=== PATIENT | female | born 1935 | race Hispanic/Latino ===

== ENCOUNTER 2016-10-25 04:48 | Inpatient (IN) | payer MEDICARE ==
[2016-10-25] MEDS ORDERED: ATROVENT IH ONE ×3 (05:06→05:19)
[2016-10-25] MEDS ORDERED: PROVENTIL IH ONE ×2 (05:06→05:18)
[2016-10-25 05:25] LABS: Basophils % (Auto) 0.2 % (0.0-1.8); Eosinophils % (Auto) 0.1 % (0.0-4.3); Hematocrit 34.7 % (30.3-42.9); Hemoglobin 11.3 gm/dl (10.1-14.3); Mean Corpuscular HGB Conc 33 % (30-34); Mean Corpuscular Hemoglobin 28 pg (28-32); Mean Corpuscular Volume 85 fl (79-97); Platelet Count 232 K/mm3 (140-440); Red Cell Distribution Width 15.1 % (13.2-15.2); White Blood Count 6.1 K/mm3 (4.5-11.0)
[2016-10-25 05:42] LABS: BUN/Creatinine Ratio 14.44; Calcium 8.5 mg/dL (8.4-10.2); Chloride 102.9 mmol/L (98-107); Potassium 3.1 mmol/L (3.6-5.0)
[2016-10-25 07:23] LABS: Creatine Kinase MB 7.6 ng/mL (0.0-4.0)
[2016-10-25 07:25] LABS: Alanine Aminotransferase 17 units/L (7-56); Albumin 4.1 g/dL (3.9-5); Albumin/Globulin Ratio 1.7 %; Alkaline Phosphatase 80 units/L (35-129); Bilirubin,Total 0.2 mg/dL (0.1-1.2); Creatine Kinase 421 units/L (30-135); INR 0.96 (0.87-1.13); Partial Thromboplastin Time 29.2 Sec. (24.2-36.6); Total Protein 6.5 g/dL (6.3-8.2)
[2016-10-25] MEDS ORDERED: K-DUR PO ONE (07:25)
[2016-10-25 07:33] LABS: Bilirubin,Direct < 0.2 mg/dL (0-0.2)
--- NOTE | 2016-10-25 07:45 | Emergency Department Report ---
ED General Adult HPI - General Chief complaint: Dyspnea/Respdistress Stated complaint: YVONNE/ASTHMA Time Seen by Provider: 10/25/16 06:18 Source: patient, family, EMS Mode of arrival: Stretcher Limitations: No Limitations - History of Present Illness Initial comments: The patient was transported to this facility by EMS for a "asthma flare". She states that she took a breathing treatment at home but she did not have relief. Her is being buried today and she is under stress. EMS gave Solu- Medrol as well as Atrovent and albuterol. The patient arrived in no distress and was noted at triage to have normal work of breathing. She states that she usually runs a pulse oximetry in the low 90s at home. She is not on supplemental oxygen however. She is patient of Dr. Jorge varela. She states that she has adult onset asthma after 59 years of age. He stated that she was a former smoker but Dr. Bellamy according to the patient told her that was "not contributory". -: hour(s) Severity scale (0 -10): 0 Consistency: now resolved Improves with: none Worsens with: none Associated Symptoms: denies other symptoms - Related Data Home Medications Medication Instructions Recorded Confirmed Last Taken ALPRAZolam [Xanax TAB] 0.5 mg PO DAILY PRN 10/25/16 10/25/16 10/24/16 Lisinopril [Zestril] 20 mg PO QDAY 10/25/16 10/25/16 10/24/16 amLODIPine [Norvasc] 10 mg PO DAILY 10/25/16 10/25/16 10/24/16 Allergies Allergy/AdvReac Type Severity Reaction Status Date / Time medroxyprogesterone acetate Allergy "Drives me Verified 10/25/16 10:46 [From Provera] crazy" buspirone HCl [From BuSpar] AdvReac Severe ALMOST HAD Verified 10/25/16 10:46 STROKE codeine AdvReac Severe DRIVES Verified 10/25/16 10:46 CRAZY,DISORIENTED cyclobenzaprine HCl AdvReac Severe DISORIENTED Verified 10/25/16 10:46 [From Flexeril] Sulfa (Sulfonamide AdvReac Severe VOMITING,HI Verified 10/25/16 10:46 Antibiotics) VES,DIARRHE A ED Review of Systems ROS: Stated complaint: YVONNE/ASTHMA Other details as noted in HPI Constitutional: denies: chills, fever Eyes: denies: eye pain, eye discharge, vision change ENT: denies: ear pain, throat pain Respiratory: see HPI, shortness of breath, wheezing Cardiovascular: denies: chest pain, palpitations Endocrine: no symptoms reported Gastrointestinal: denies: abdominal pain, nausea, diarrhea Genitourinary: denies: urgency, dysuria, discharge Musculoskeletal: denies: back pain, joint swelling, arthralgia Skin: denies: rash, lesions Neurological: denies: headache, weakness, paresthesias Psychiatric: denies: anxiety, depression Hematological/Lymphatic: denies: easy bleeding, easy bruising ED Past Medical Hx - Past Medical History Hx Hypertension: Yes Hx Arthritis: Yes (RA) Hx Asthma: Yes - Surgical History Hx Cholecystectomy: Yes Additional Surgical History: nasal. foot. bladder - Social History Smoking Status: Never Smoker Substance Use Type: None - Medications Home Medications: Home Medications Medication Instructions Recorded Confirmed Last Taken Type ALPRAZolam [Xanax TAB] 0.5 mg PO DAILY PRN 10/25/16 10/25/16 10/24/16 History Lisinopril [Zestril] 20 mg PO QDAY 10/25/16 10/25/16 10/24/16 History amLODIPine [Norvasc] 10 mg PO DAILY 10/25/16 10/25/16 10/24/16 History ED Physical Exam - General Limitations: No Limitations General appearance: alert, in no apparent distress - Head Head exam: Present: atraumatic, normocephalic - Eye Eye exam: Present: normal appearance. Absent: scleral icterus - ENT ENT exam: Present: mucous membranes moist - Neck Neck exam: Present: normal inspection - Respiratory Respiratory exam: Present: normal lung sounds bilaterally. Absent: respiratory distress - Cardiovascular Cardiovascular Exam: Present: regular rate, normal rhythm. Absent: systolic murmur, diastolic murmur, rubs, gallop - GI/Abdominal GI/Abdominal exam: Present: soft, normal bowel sounds. Absent: distended, tenderness, guarding, rebound - Extremities Exam Extremities exam: Present: normal inspection, normal capillary refill. Absent: tenderness, pedal edema, joint swelling, calf tenderness - Back Exam Back exam: Present: normal inspection - Neurological Exam Neurological exam: Present: alert, oriented X3, CN II-XII intact. Absent: motor sensory deficit - Psychiatric Psychiatric exam: Present: normal affect, normal mood - Skin Skin exam: Present: warm, dry, intact, normal color. Absent: rash ED Course Vital Signs 10/25/16 10/25/16 10/25/16 05:16 05:20 05:21 Temperature Pulse Rate 91 H Pulse Rate [ 95 H Bilateral] Respiratory 19 Rate Respiratory 13 Rate [Bilateral ] Blood Pressure 156/67 Blood Pressure [Left] O2 Sat by Pulse 92 100 Oximetry 10/25/16 10/25/16 10/25/16 05:29 05:30 05:33 Temperature 97.9 F Pulse Rate 92 H 93 H 92 H Pulse Rate [ Bilateral] Respiratory 20 18 Rate Respiratory Rate [Bilateral ] Blood Pressure 156/67 Blood Pressure 159/67 [Left] O2 Sat by Pulse 100 100 Oximetry 10/25/16 10/25/16 10/25/16 05:40 05:50 06:00 Temperature Pulse Rate 93 H 98 H 103 H Pulse Rate [ Bilateral] Respiratory 13 12 20 Rate Respiratory Rate [Bilateral ] Blood Pressure 164/63 154/57 154/57 Blood Pressure [Left] O2 Sat by Pulse 100 100 93 Oximetry 10/25/16 10/25/16 10/25/16 06:10 06:20 06:30 Temperature Pulse Rate 98 H 97 H 100 H Pulse Rate [ Bilateral] Respiratory 16 18 17 Rate Respiratory Rate [Bilateral ] Blood Pressure 148/63 162/60 162/60 Blood Pressure [Left] O2 Sat by Pulse 93 93 90 Oximetry 10/25/16 10/25/16 10/25/16 06:40 07:04 07:06 Temperature Pulse Rate 96 H 100 H Pulse Rate [ Bilateral] Respiratory 17 18 18 Rate Respiratory Rate [Bilateral ] Blood Pressure 165/64 Blood Pressure 174/65 [Left] O2 Sat by Pulse 92 93 98 Oximetry 10/25/16 07:40 Temperature Pulse Rate Pulse Rate [ Bilateral] Respiratory Rate Respiratory Rate [Bilateral ] Blood Pressure Blood Pressure [Left] O2 Sat by Pulse 95 Oximetry ED Medical Decision Making - Lab Data Result diagrams: 10/25/16 05:14 10/25/16 05:14 Laboratory Results - last 24 hr 10/25/16 10/25/16 10/25/16 05:14 05:14 06:41 WBC 6.1 RBC 4.10 Hgb 11.3 Hct 34.7 MCV 85 MCH 28 MCHC 33 RDW 15.1 Plt Count 232 Lymph % (Auto) 18.2 Knott % (Auto) 13.4 H Eos % (Auto) 0.1 Baso % (Auto) 0.2 Lymph # 1.1 L Knott # 0.8 Eos # 0.0 Baso # 0.0 Seg Neutrophils % 68.1 Seg Neutrophils # 4.1 Sodium 142 Potassium 3.1 L Chloride 102.9 Carbon Dioxide 25 Anion Gap 17 BUN 13 Creatinine 0.9 Estimated GFR 60 BUN/Creatinine Ratio 14.44 Glucose 95 Calcium 8.5 CK-MB (CK-2) 7.6 H NT-Pro-B Natriuret Pep 1206 H - EKG Data -: EKG Interpreted by Me EKG shows normal: sinus rhythm Rate: normal - EKG Data Interpretation: nonspecific ST-T wave micki - Radiology Data interpreted by me: Chest x-ray no acute process. Chronic scarring right lung. The patient has been stable here. We walked the patient and her pulse oximetry went down to 88%. No history of heart failure. She is an elevated BNP. Therefore she was referred to the hospitalist service further care and evaluation. I think an echocardiogram would be of value. I did give her a diuretic as her potassium was low. Dr. Cruz is aware. Critical care attestation.: If time is entered above; I have spent that time in minutes in the direct care of this critically ill patient, excluding procedure time. ED Disposition Clinical Impression: COPD exacerbation, Elevated brain natriuretic peptide (BNP) level, Hypoxia Disposition: OP ADMITTED IP TO THIS HOSP Is pt being admited?: Yes Does the pt Need Aspirin: Yes Condition: Stable Instructions: Chronic Obstructive Pulmonary Disease (ED) Referrals: PRIMARY CARE, [Primary Care Provider] - 3-5 Days Time of Disposition: 11:58
--- NOTE | 2016-10-25 08:59 | XRay Report ---
PORTABLE CHEST INDICATION: Difficulty breathing. COMPARISON: None similar at this institution. FINDINGS: Portable, frontal chest radiograph demonstrates normal cardiomediastinal silhouette. Mild patient rotation. Well-expanded lungs. Mild bibasilar atelectasis or scarring. Mild, left more than right basilar haziness may represent pleural fluid and/or thickening. No CHF. EKG leads. Intact bones. CONCLUSION: Bibasilar radiographic appearance in this patient with possible COPD, as described. Please also correlate clinically and with prior chest imaging, if available. Thank you for the opportunity to participate in this patient's care.
--- NOTE | 2016-10-25 09:19 | Admit Criteria Form ---
Admission Criteria Documentation: COPD Clinical Indications for Admission to Inpatient Care (Place 'X' for any and all applicable criteria): Admission is indicated for ANY ONE of the following (1)(2)(3): [ ]I. Acute exacerbation by high-risk comorbidity (e.g., pneumonia, dysrhythmia, heart failure, pleural effusion, pneumothorax) or severe underlying COPD (e.g., steroid dependent) [X ]II. Inpatient admission required rather than observation care (see Chronic Obstructive Pulmonary Disease: Observation Care) because of ANY ONE of the following: [X ]a) New or pre-existing signs or symptoms of COPD (eg, dyspnea or Tachypnea at rest or with minimal activity) that persist despite outpatient and observation care treatment [ ]b) New-onset hypoxemia (room air SaO2 less than 90%, PO2 less than 60 mm Hg (8.0 kPa)) that persists despite outpatient and observation care treatment [ ]c) Worsening of pre-existing hypoxemia (eg, new or increased requirement for supplemental oxygen to maintain oxygenation at baseline level) that persists despite outpatient and observation care treatment, with oxygen treatment needs performable only in acute inpatient setting [ ]d) Hypercarbia (PCO2 greater than 40 mm Hg (5.3 kPa))-induced respiratory acidosis (pH less than 7.35) that persists despite outpatient and observation care treatment [ ]e) Supplemental oxygen or respiratory treatments for over 24 hours that are performable only in acute inpatient setting [ ]f) Chest tube placement with active evacuation (e.g., suction, drainage) (5) [ ]g) Other condition, treatment or monitoring requiring inpatient admission [ ]III. Planned invasive surgical or diagnostic procedures requiring acute- care hospitalization [ ]IV. Acute respiratory failure (e.g., uncompensated hypercarbia, severe hypoxemia) [ ]V. Severe comorbid condition (e.g., severe steroid myopathy, acute vertebral fracture) that has acutely worsened pulmonary function [ ]. Confusion state, lethargy, obtundation, stupor or coma Extended stay beyond goal length of stay may be needed for (31)(32): [ ]a ) Respiratory Failure. [ ]b) Severe or persisting hypoxemia or hypercarbia [ ]c) Severe or persistent dyspnea [ ]d) Comorbidities (e.g. chronic heart failure, atrial fibrillation with rapid response, pneumonia) [ ]e) Malnutrition The original [facility] content created by [facility] has been revised. The portions of the content which have been revised are identified through the use of italic text or in bold, and [facility] has neither reviewed nor approved the modified material. All other unmodified content is copyright [facility]. Please see references footnoted in the original [facility] edition 2016 Admission Criteria Met: Yes
[2016-10-25] MEDS ORDERED: XANAX PO PRN (10:04)
--- NOTE | 2016-10-25 10:04 | History and Physical Report ---
History of Present Illness Date of examination: 10/25/16 History of present illness: The patient was transported to this facility by EMS for a "asthma flare". She states that she took a breathing treatment at home but she did not have relief. Her is being buried today and she is under stress. EMS gave Solu- Medrol as well as Atrovent and albuterol. The patient arrived in no distress and was noted at triage to have normal work of breathing. She states that she usually runs a pulse oximetry in the low 90s at home. She is not on supplemental oxygen however. She is patient of Dr. Jorge varela. She states that she has adult onset asthma after 59 years of age. He stated that she was a former smoker but Dr. Bellamy according to the patient told her that was "not contributory". Medications and Allergies Allergies Allergy/AdvReac Type Severity Reaction Status Date / Time medroxyprogesterone acetate Allergy "Drives me Verified 10/25/16 10:46 [From Provera] crazy" buspirone HCl [From BuSpar] AdvReac Severe ALMOST HAD Verified 10/25/16 10:46 STROKE codeine AdvReac Severe DRIVES Verified 10/25/16 10:46 CRAZY,DISORIENTED cyclobenzaprine HCl AdvReac Severe DISORIENTED Verified 10/25/16 10:46 [From Flexeril] Sulfa (Sulfonamide AdvReac Severe VOMITING,HI Verified 10/25/16 10:46 Antibiotics) VES,DIARRHE A aspirin AdvReac Unknown Verified 10/25/16 12:18 Home Medications Medication Instructions Recorded Confirmed Last Taken Type ALPRAZolam [Xanax TAB] 0.5 mg PO DAILY PRN 10/25/16 10/25/16 10/24/16 History Lisinopril [Zestril] 20 mg PO QDAY 10/25/16 10/25/16 10/24/16 History amLODIPine [Norvasc] 10 mg PO DAILY 10/25/16 10/25/16 10/24/16 History Review of Systems Respiratory: shortness of breath Exam - Constitutional Vitals: Temp Pulse Resp BP Pulse Ox 97.9 F 100 H 18 174/65 95 10/25/16 05:29 10/25/16 07:04 10/25/16 07:06 10/25/16 07:04 10/25/16 07:40 General appearance: Present: mild distress - EENT Eyes: Present: PERRL, EOM intact ENT: hearing intact, clear oral mucosa - Neck Neck: Present: supple, normal ROM - Respiratory Respiratory effort: normal Respiratory: bilateral: rhonchi - Cardiovascular Rhythm: regular Heart Sounds: Present: S1 & S2 - Extremities Extremities: no ischemia, No edema - Abdominal General gastrointestinal: Present: soft, non-tender, non-distended, normal bowel sounds - Musculoskeletal Musculoskeletal: strength equal bilaterally - Psychiatric Psychiatric: appropriate mood/affect, intact judgment & insight - Neurologic Neurologic: CNII-XII intact, moves all extremities Results - Labs CBC & Chem 7: 10/25/16 05:14 10/25/16 05:14 Labs: Laboratory Last Values WBC 6.1 K/mm3 (4.5-11.0) 10/25/16 05:14 RBC 4.10 M/mm3 (3.65-5.03) 10/25/16 05:14 Hgb 11.3 gm/dl (10.1-14.3) 10/25/16 05:14 Hct 34.7 % (30.3-42.9) 10/25/16 05:14 MCV 85 fl (79-97) 10/25/16 05:14 MCH 28 pg (28-32) 10/25/16 05:14 MCHC 33 % (30-34) 10/25/16 05:14 RDW 15.1 % (13.2-15.2) 10/25/16 05:14 Plt Count 232 K/mm3 (140-440) 10/25/16 05:14 Lymph % (Auto) 18.2 % (13.4-35.0) 10/25/16 05:14 Whitley % (Auto) 13.4 % (0.0-7.3) H 10/25/16 05:14 Eos % (Auto) 0.1 % (0.0-4.3) 10/25/16 05:14 Baso % (Auto) 0.2 % (0.0-1.8) 10/25/16 05:14 Lymph # 1.1 K/mm3 (1.2-5.4) L 10/25/16 05:14 Whitley # 0.8 K/mm3 (0.0-0.8) 10/25/16 05:14 Eos # 0.0 K/mm3 (0.0-0.4) 10/25/16 05:14 Baso # 0.0 K/mm3 (0.0-0.1) 10/25/16 05:14 Seg Neutrophils % 68.1 % (40.0-70.0) 10/25/16 05:14 Seg Neutrophils # 4.1 K/mm3 (1.8-7.7) 10/25/16 05:14 PT 12.7 Sec. (12.2-14.9) 10/25/16 06:41 INR 0.96 (0.87-1.13) 10/25/16 06:41 APTT 29.2 Sec. (24.2-36.6) 10/25/16 06:41 D-Dimer 252.38 ng/mlDDU (0-234) H 10/25/16 06:41 Sodium 142 mmol/L (137-145) 10/25/16 05:14 Potassium 3.1 mmol/L (3.6-5.0) L 10/25/16 05:14 Chloride 102.9 mmol/L (98-107) 10/25/16 05:14 Carbon Dioxide 25 mmol/L (22-30) 10/25/16 05:14 Anion Gap 17 mmol/L 10/25/16 05:14 BUN 13 mg/dL (7-17) 10/25/16 05:14 Creatinine 0.9 mg/dL (0.7-1.2) 10/25/16 05:14 Estimated GFR 60 ml/min 10/25/16 05:14 BUN/Creatinine Ratio 14.44 % 10/25/16 05:14 Glucose 95 mg/dL (65-100) 10/25/16 05:14 Lactic Acid 1.5 mmol/L (0.7-2.0) 10/25/16 06:46 Calcium 8.5 mg/dL (8.4-10.2) 10/25/16 05:14 Total Bilirubin 0.2 mg/dL (0.1-1.2) 10/25/16 06:41 Direct Bilirubin < 0.2 mg/dL (0-0.2) 10/25/16 06:41 Indirect Bilirubin 0.0 mg/dL 10/25/16 06:41 AST 28 units/L (5-40) 10/25/16 06:41 ALT 17 units/L (7-56) 10/25/16 06:41 Alkaline Phosphatase 80 units/L (35-129) 10/25/16 06:41 Total Creatine Kinase 421 units/L (30-135) H 10/25/16 06:41 CK-MB (CK-2) 7.6 ng/mL (0.0-4.0) H 10/25/16 06:41 CK-MB (CK-2) Rel Index 1.8 (0-4) 10/25/16 06:41 NT-Pro-B Natriuret Pep 1206 pg/mL (0-900) H 10/25/16 06:41 Total Protein 6.5 g/dL (6.3-8.2) 10/25/16 06:41 Albumin 4.1 g/dL (3.9-5) 10/25/16 06:41 Albumin/Globulin Ratio 1.7 % 10/25/16 06:41 Assessment and Plan - Patient Problems (1) Hypokalemia Current Visit: Yes Status: Acute (2) COPD exacerbation Current Visit: Yes Status: Acute Plan to address problem: Will Admit to medical floor, Pulmonary consult, Nebulizer, Steroids, O2 (3) Elevated brain natriuretic peptide (BNP) level Current Visit: Yes Status: Acute Plan to address problem: 2D Echo to evaluate for heart function
[2016-10-25] MEDS ORDERED: ZOFRAN IV PRN (10:05)
[2016-10-25] MEDS ORDERED: MILK OF MAGNESIA PO PRN (10:05)
[2016-10-25] MEDS ORDERED: DULCOLAX PR PRN (10:05)
[2016-10-25] MEDS ORDERED: TYLENOL PO PRN (10:05)
[2016-10-25] MEDS ORDERED: NACL ONE ×3 (10:08→10:58)
[2016-10-25] MEDS ORDERED: BABY ASPIRIN PO SCH (12:00)
[2016-10-25] MEDS ORDERED: NORVASC ONE (12:05)
[2016-10-25] MEDS ORDERED: ZESTRIL ONE (12:05)
[2016-10-25] MEDS ORDERED: BABY ASPIRIN ONE (12:05)
[2016-10-25] MEDS: NORVASC PO SCH (12:16)
[2016-10-25] MEDS: ZESTRIL PO SCH (12:16)
--- NOTE | 2016-10-25 12:33 | Cat Scan Report ---
CTA CHEST INDICATION: Elevated d-dimer. COMPARISON: None similar. FINDINGS: Chest CTA performed following intravenous administration of 100 cc of Omnipaque 350. Rotational MIP's also obtained. Small pericardial effusion/thickening with maximum AP measurement of approximately 8 mm anteriorly noted and also posterior to the left ventricle as on axial image 186, series 2, amongst others. Normal heart size. No aortic aneurysm or dissection. Mild aortic arch atherosclerotic calcifications. No suspicious pulmonary arterial filling defects. Patent central airway. Few small mediastinal lymph nodes noted, some sub-centimeter while the largest right distal paratracheal lymph node is approximately 1.3 x 1 cm, axial image 110, series 2. Increased hilar lymphoid soft tissue as well, approximately 1.2x 0.7 cm on the right, axial image 154 and 1.2 x 0.9 cm on the left, axial image 139. No significant axillary lymphadenopathy. Normal imaged thyroid. Left more than right apical scarring/pleural thickening as also basilar atelectasis or scarring. Mild bronchial wall thickening in the left lower lobe medially also noted, axial images 183-210, series 2, amongst others. Tiny right pleural fluid and atelectasis as well, axial image 234. Approximately 2 mm right lower lobe calcified granuloma also incidentally seen, axial image 196. Nonspecific distal esophageal wall thickening, not excluded for gastroesophageal reflux and/or hiatal hernia, amongst others. At least 3 or 4 ill-defined hepatic hypervascular foci, one measuring 0.9 cm in the right hepatic lobe inferiorly on axial image 262, series 2 and possibly 2 more medially as on axial images 249 and 260, amongst others. Largest such focus also noted at the junction of the right and left lobes measuring 1.5 cm , axial image 229, series 2. An indeterminate 9 mm right hepatic hypodensity as well, axial image 242 with another tiny possibly towards the left hepatic dome, axial image 212. Approximately 1 cm left adrenal apical hypodense lesion measuring 29 HU on axial image 252, series 2. Slight left perinephric stranding and cholecystectomy clips incompletely imaged. Demineralized bones mild to moderate multilevel thoracic spondylosis. CONCLUSION: 1. No CT evidence of pulmonary embolism with various other findings, including shotty nonspecific lymphadenopathy and minimal pericardial and right pleural fluid, as described. 2. Mild left lower lobe bronchial wall thickening medially also noted. 3. Various other incidental findings, including few chronic changes in the lungs, gastroesophageal prominence/thickening, nonspecific multiple liver lesions including some hypervascular foci, left adrenal mass and cholecystectomy clips, amongst others, as above. Thank you for the opportunity to participate in this patient's care.
[2016-10-25] MEDS: LOVENOX SUB-Q SCH (13:15)
--- NOTE | 2016-10-25 18:28 | Consultation ---
History of Present Illness Reason for consult: dyspnea, asthma, COPD History of present illness: Case of an 81 y/o female, who presented to the ED c/o SOB and asthma. She sees at the office. Was seen about 1 week ago with SOB , some cough and wheezing. Reports Hx/o adult onset asthma. reportedly, was given IM steroids,a Z pack and PO Prednisone. Unfortunately, her that day after a prolonged illness and she has not been feeling well since then. No chest pain or hemoptysis.No fever. Denies other Sx. Daughter at bedside. Past History Past Medical History: arthritis, other (asthma) Social history: . denies: smoking, alcohol abuse, prescription drug abuse Family history: hypertension Medications and Allergies Allergies Allergy/AdvReac Type Severity Reaction Status Date / Time medroxyprogesterone acetate Allergy "Drives me Verified 10/25/16 10:46 [From Provera] crazy" buspirone HCl [From BuSpar] AdvReac Severe ALMOST HAD Verified 10/25/16 10:46 STROKE codeine AdvReac Severe DRIVES Verified 10/25/16 10:46 CRAZY,DISORIENTED cyclobenzaprine HCl AdvReac Severe DISORIENTED Verified 10/25/16 10:46 [From Flexeril] Sulfa (Sulfonamide AdvReac Severe VOMITING,HI Verified 10/25/16 10:46 Antibiotics) VES,DIARRHE A aspirin AdvReac Unknown Verified 10/25/16 12:18 Home Medications Medication Instructions Recorded Confirmed Last Taken Type ALPRAZolam [Xanax TAB] 0.5 mg PO DAILY PRN 10/25/16 10/25/16 10/24/16 History Lisinopril [Zestril] 20 mg PO QDAY 10/25/16 10/25/16 10/24/16 History amLODIPine [Norvasc] 10 mg PO DAILY 10/25/16 10/25/16 10/24/16 History Active Meds: Active Medications Acetaminophen (Tylenol) 650 mg PO Q4H PRN PRN Reason: Pain MILD(1-3)/Fever >100.5/TIRADO Alprazolam (Xanax) 0.5 mg PO DAILY PRN PRN Reason: Anxiety Amlodipine Besylate (Norvasc) 10 mg PO DAILY [facility] Last Admin: 10/25/16 12:16 Dose: 10 mg Bisacodyl (Dulcolax) 10 mg MD QDAY PRN PRN Reason: Constipation unrelieved by MOM Enoxaparin Sodium (Lovenox) 30 mg SUB-Q QDAY [facility] Last Admin: 10/25/16 13:15 Dose: 30 mg Lisinopril (Zestril) 20 mg PO QDAY [facility] Last Admin: 10/25/16 12:16 Dose: 20 mg Magnesium Hydroxide (Milk Of Magnesia) 30 ml PO Q4H PRN PRN Reason: Constipation Ondansetron HCl (Zofran) 4 mg IV Q8H PRN PRN Reason: N/V unrelieved by Reglan Review of Systems All systems: negative Constitutional: fatigue, weakness, malaise, poor appetite Physical Examination Vital signs: Vital Signs Pulse Ox 92 10/25/16 05:16 General appearance: no acute distress, alert Eyes: non-icteric ENT: oropharynx moist Neck: supple Ascultation: Bilateral: diminished breath sounds, wheezes (sporadic , bilateral) Cardiovascular: regular rate and rhythm Gastrointestinal: normoactive bowel sounds, non-distended Integumentary: normal Extremities: no cyanosis, no edema, pink and warm normal mental status, non-focal exam, pupils equal and round, CN II-XII normal, motor strength normal and mood appropriate, affect normal Results - Laboratory Findings CBC and BMP: 10/25/16 05:14 10/25/16 05:14 PT/INR, D-dimer PT 12.7 Sec. (12.2-14.9) 10/25/16 06:41 INR 0.96 (0.87-1.13) 10/25/16 06:41 D-Dimer 252.38 ng/mlDDU (0-234) H 10/25/16 06:41 - Diagnostic Findings Chest x-ray: report reviewed, image reviewed CT scan - chest: pending Assessment and Plan Asthma/ COPD exacerbation Hypoxia High BNP.No obvious CHF clinically, but in this setting, needs to be monitored for Takosubo- Stress cardiomyopathy Rec Albuterol or Ipratropium nebs q 4-6 hr Solu medrol 40 -60 mg IV q 6 hr Check Chest CTA results when available Check echo results DVT prophylaxis oxygen NC titrate to O2 sat > 92% Thanks
[2016-10-25] MEDS ORDERED: PROVENTIL IH PRN (22:44)
[2016-10-26] MEDS ORDERED: ATROVENT IH SCH (02:00)
[2016-10-26 06:47] LABS: Basophils % (Auto) 0.1 % (0.0-1.8); Hematocrit 32.2 % (30.3-42.9); Hemoglobin 10.6 gm/dl (10.1-14.3); Mean Corpuscular HGB Conc 33 % (30-34); Mean Corpuscular Hemoglobin 28 pg (28-32); Mean Corpuscular Volume 85 fl (79-97); Platelet Count 223 K/mm3 (140-440); Red Blood Count 3.78 M/mm3 (3.65-5.03); Red Cell Distribution Width 15.1 % (13.2-15.2); White Blood Count 5.1 K/mm3 (4.5-11.0)
[2016-10-26 07:09] LABS: Albumin 3.4 g/dL (3.9-5); Albumin/Globulin Ratio 1.2 %; Bilirubin,Total 0.2 mg/dL (0.1-1.2); Calcium 8.3 mg/dL (8.4-10.2); Chloride 102.3 mmol/L (98-107); Potassium 4.3 mmol/L (3.6-5.0); Total Protein 6.2 g/dL (6.3-8.2)
[2016-10-26] MEDS: DUONEB 0.5 MG-3 MG/3 ML SOLN IH SCH ×2 (07:37→15:11)
[2016-10-26] MEDS: LOVENOX SUB-Q SCH (09:33)
[2016-10-26] MEDS: NORVASC PO SCH (09:33)
[2016-10-26] MEDS: ZESTRIL PO SCH (09:34)
--- NOTE | 2016-10-26 12:40 | Consultation ---
History of Present Illness Consult date: 10/26/16 Requesting physician: ASHOK JACOME Consult reason: congestive heart failure History of present illness: This is a 81-year-old female with history of COPD crushable chronic bronchitis who is breathing with the recent loss of her who is been having coughing and wheezing shortness of breath for the last 24-36 hours has been treated with anabiotic since daily test known history of COPD. Prior to this patient states during daily activities without any shortness of breath has rheumatoid arthritis. Patient has no chest pain no nausea no vomiting no fever or chills or syncope Past History Past Medical History: arthritis, COPD, hypertension, other (asthma) Social history: . denies: smoking, alcohol abuse, prescription drug abuse Family history: hypertension Medications and Allergies Allergies Allergy/AdvReac Type Severity Reaction Status Date / Time medroxyprogesterone acetate Allergy "Drives me Verified 10/25/16 10:46 [From Provera] crazy" buspirone HCl [From BuSpar] AdvReac Severe ALMOST HAD Verified 10/25/16 10:46 STROKE codeine AdvReac Severe DRIVES Verified 10/25/16 10:46 CRAZY,DISORIENTED cyclobenzaprine HCl AdvReac Severe DISORIENTED Verified 10/25/16 10:46 [From Flexeril] Sulfa (Sulfonamide AdvReac Severe VOMITING,HI Verified 10/25/16 10:46 Antibiotics) VES,DIARRHE A aspirin AdvReac Unknown Verified 10/25/16 12:18 Home Medications Medication Instructions Recorded Confirmed Last Taken Type ALPRAZolam [Xanax TAB] 0.5 mg PO DAILY PRN 10/25/16 10/25/16 10/24/16 History Lisinopril [Zestril] 20 mg PO QDAY 10/25/16 10/25/16 10/24/16 History amLODIPine [Norvasc] 10 mg PO DAILY 10/25/16 10/25/16 10/24/16 History Azithromycin [Zithromax] 250 mg PO 10/26/16 10/24/16 10:00 History Fluticasone/Salmeterol [Advair 1 puff IH BID 10/26/16 10/26/16 10/24/16 10:00 History Diskus 250-50 mcg] Fluticasone/Salmeterol [Advair 1 puff IH BID 10/26/16 10/26/16 10/25/16 10:00 History Diskus 250-50 mcg] Active Meds: Active Medications Acetaminophen (Tylenol) 650 mg PO Q4H PRN PRN Reason: Pain MILD(1-3)/Fever >100.5/TIRADO Albuterol (Proventil) 2.5 mg IH Q4HRT PRN PRN Reason: Shortness Of Breath Albuterol/Ipratropium (Duoneb 0.5 Mg-3 Mg/3 Ml Soln) 1 ampul IH Q6HRT [facility] Last Admin: 10/26/16 07:37 Dose: 1 ampul Alprazolam (Xanax) 0.5 mg PO DAILY PRN PRN Reason: Anxiety Last Admin: 10/25/16 21:28 Dose: 0.5 mg Amlodipine Besylate (Norvasc) 10 mg PO DAILY [facility] Last Admin: 10/26/16 09:33 Dose: 10 mg Bisacodyl (Dulcolax) 10 mg RI QDAY PRN PRN Reason: Constipation unrelieved by MOM Enoxaparin Sodium (Lovenox) 30 mg SUB-Q QDAY [facility] Last Admin: 10/26/16 09:33 Dose: 30 mg Lisinopril (Zestril) 20 mg PO QDAY [facility] Last Admin: 10/26/16 09:34 Dose: 20 mg Magnesium Hydroxide (Milk Of Magnesia) 30 ml PO Q4H PRN PRN Reason: Constipation Last Admin: 10/25/16 21:28 Dose: 30 ml Methylprednisolone Sodium Succinate (Solu-Medrol) 80 mg IV Q8HR [facility] Last Admin: 10/26/16 07:30 Dose: 80 mg Ondansetron HCl (Zofran) 4 mg IV Q8H PRN PRN Reason: N/V unrelieved by Reglan Review of Systems All systems: negative (HPI) Physical Examination Vital Signs Pulse Ox 92 10/25/16 05:16 General appearance: no acute distress, well-nourished HEENT: Positive: PERRL, Mucus Membranes Moist Neck: Positive: neck supple, trachea midline Cardiac: Positive: Reg Rate and Rhythm, S1/S2. Negative: Audible Murmur Lungs: Positive: Other (decreased breath sounds on left) Neuro: Positive: Grossly Intact Abdomen: Positive: Soft, Active Bowel Sounds. Negative: Tender, Distended Female genitourinary: deferred Skin: Positive: Clear Incision: Cardiac Cath Site Musculoskeletal: No Pain, Normal Range of Motion Extremities: Present: normal. Absent: edema Results 10/26/16 05:31 10/26/16 05:31 Cardiac Enzymes 10/26/16 Range/Units 05:31 AST 20 (5-40) units/L CBC 10/26/16 Range/Units 05:31 WBC 5.1 (4.5-11.0) K/mm3 RBC 3.78 (3.65-5.03) M/mm3 Hgb 10.6 (10.1-14.3) gm/dl Hct 32.2 (30.3-42.9) % Plt Count 223 (140-440) K/mm3 Lymph # 0.4 L (1.2-5.4) K/mm3 Wise # 0.2 (0.0-0.8) K/mm3 Eos # 0.0 (0.0-0.4) K/mm3 Baso # 0.0 (0.0-0.1) K/mm3 Comprehensive Metabolic Panel 10/26/16 Range/Units 05:31 Sodium 140 (137-145) mmol/L Potassium 4.3 D (3.6-5.0) mmol/L Chloride 102.3 (98-107) mmol/L Carbon Dioxide 26 (22-30) mmol/L BUN 15 (7-17) mg/dL Creatinine 1.0 (0.7-1.2) mg/dL Glucose 128 H (65-100) mg/dL Calcium 8.3 L (8.4-10.2) mg/dL AST 20 (5-40) units/L ALT 15 (7-56) units/L Alkaline Phosphatase 74 (35-129) units/L Total Protein 6.2 L (6.3-8.2) g/dL Albumin 3.4 L (3.9-5) g/dL - Imaging and Cardiology Echo: report reviewed (10/25/2016 normal lv function mild tr rvsp 56 mm hg and small pericardial effusion) EKG interpretations - Telemetry EKG Rhythm: Sinus Rhythm Assessment and Plan Acute respiratory failure COPD exacerbation Hypertension Rheumatoid arthritis Elevated BNP Pulmonary hypertension Recommend patient has moderate pulmonary hypertension as a cause of elevated BNP patient is poor pericardial effusion hemostatically significant continue treatment for patient COPD exaggeration and patient has normal RV and LV systolic function
--- NOTE | 2016-10-26 15:24 | Progress Note ---
Assessment and Plan Assessment and plan: The patient is a 81 year old female with hx of COPD, RA, Asthma was transported to this facility by EMS for a "asthma flare". She states that she took a breathing treatment at home but she did not have relief. Her is being buried today and she is under stress and unfortunately could not attend. she was outside and exposed to a tate of cold air and pollen. EMS gave Solu-Medrol as well as Atrovent and albuterol. The patient arrived in no distress and was noted at triage to have normal work of breathing. She states that she usually runs a pulse oximetry in the low 90s at home. She is not on supplemental oxygen however. She is patient of Dr. Jorge varela. She states that she has adult onset asthma after 59 years of age. He stated that she was a former smoker but Dr. Bellamy according to the patient told her that was "not contributory". 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 Cardiology was consulted echocardiogram reveals pulmonary hypertension moderate nature with normal RV and LV systolic function. No evidence of Takosubo. Continue current management of this patient continues to improve in a.m. we'll discharge. I will also taper down steroids at this time and converted by mouth. * Family at bedside plan discussed with them. * Pulmonary hypertension * Findings of abdominal imaging has been reported to the family will recommend follow-up with GI outpatient for further evaluation * DVT and GI prophylaxis History Interval history: Follow-up shortness of breath Patient seen and examined this morning in no acute distress Denies any chest pain, nausea, vomiting, diarrhea No fever noted blood pressure controlled No adverse events reported to me by nursing staff Hospitalist Physical - Physical exam Narrative exam: VITAL SIGNS: Reviewed. GENERAL: The patient appeared well nourished and normally developed. Vital signs as documented. HEAD: No signs of head trauma. EYES: Pupils are equal. Extraocular motions intact. EARS: Hearing grossly intact. MOUTH: Oropharynx is normal. NECK: No adenopathy, no JVD. CHEST: Chest with mild bibasilar crackles, no wheezes, rales or rhonchi CARDIAC: Regular rate and rhythm. S1 and S2, without murmurs, gallops, or rubs. VASCULAR: No Edema. Peripheral pulses normal and equal in all extremities. ABDOMEN: Soft, without detectable tenderness. No sign of distention. No rebound or guarding, and no masses palpated. Bowel Sounds normal. MUSCULOSKELETAL: Good range of motion of all major joints. Extremities without clubbing, cyanosis or edema. NEUROLOGIC EXAM: Alert and oriented x 3. No focal sensory or strength deficits. Speech normal. Follows commands. PSYCHIATRIC: Mood normal. SKIN: No rash or lesions. - Constitutional Vitals: Temp Pulse Resp BP Pulse Ox 97.5 F L 91 H 17 168/78 92 10/26/16 08:00 10/26/16 15:17 10/26/16 15:17 10/26/16 09:34 10/26/16 08:00 General appearance: Present: no acute distress, well-nourished Results - Labs CBC & Chem 7: 10/26/16 05:31 10/26/16 05:31 Labs: Laboratory Last Values WBC 5.1 K/mm3 (4.5-11.0) 10/26/16 05:31 RBC 3.78 M/mm3 (3.65-5.03) 10/26/16 05:31 Hgb 10.6 gm/dl (10.1-14.3) 10/26/16 05:31 Hct 32.2 % (30.3-42.9) 10/26/16 05:31 MCV 85 fl (79-97) 10/26/16 05:31 MCH 28 pg (28-32) 10/26/16 05:31 MCHC 33 % (30-34) 10/26/16 05:31 RDW 15.1 % (13.2-15.2) 10/26/16 05:31 Plt Count 223 K/mm3 (140-440) 10/26/16 05:31 Lymph % (Auto) 7.8 % (13.4-35.0) L 10/26/16 05:31 [place] % (Auto) 3.8 % (0.0-7.3) 10/26/16 05:31 Eos % (Auto) 0.0 % (0.0-4.3) 10/26/16 05:31 Baso % (Auto) 0.1 % (0.0-1.8) 10/26/16 05:31 Lymph # 0.4 K/mm3 (1.2-5.4) L 10/26/16 05:31 [place] # 0.2 K/mm3 (0.0-0.8) 10/26/16 05:31 Eos # 0.0 K/mm3 (0.0-0.4) 10/26/16 05:31 Baso # 0.0 K/mm3 (0.0-0.1) 10/26/16 05:31 Seg Neutrophils % 88.3 % (40.0-70.0) H 10/26/16 05:31 Seg Neutrophils # 4.5 K/mm3 (1.8-7.7) 10/26/16 05:31 PT 12.7 Sec. (12.2-14.9) 10/25/16 06:41 INR 0.96 (0.87-1.13) 10/25/16 06:41 APTT 29.2 Sec. (24.2-36.6) 10/25/16 06:41 D-Dimer 252.38 ng/mlDDU (0-234) H 10/25/16 06:41 Sodium 140 mmol/L (137-145) 10/26/16 05:31 Potassium 4.3 mmol/L (3.6-5.0) D 10/26/16 05:31 Chloride 102.3 mmol/L (98-107) 10/26/16 05:31 Carbon Dioxide 26 mmol/L (22-30) 10/26/16 05:31 Anion Gap 16 mmol/L 10/26/16 05:31 BUN 15 mg/dL (7-17) 10/26/16 05:31 Creatinine 1.0 mg/dL (0.7-1.2) 10/26/16 05:31 Estimated GFR 53 ml/min 10/26/16 05:31 BUN/Creatinine Ratio 15.00 % 10/26/16 05:31 Glucose 128 mg/dL (65-100) H 10/26/16 05:31 Lactic Acid 1.5 mmol/L (0.7-2.0) 10/25/16 06:46 Calcium 8.3 mg/dL (8.4-10.2) L 10/26/16 05:31 Total Bilirubin 0.2 mg/dL (0.1-1.2) 10/26/16 05:31 Direct Bilirubin < 0.2 mg/dL (0-0.2) 10/25/16 06:41 Indirect Bilirubin 0.0 mg/dL 10/25/16 06:41 AST 20 units/L (5-40) 10/26/16 05:31 ALT 15 units/L (7-56) 10/26/16 05:31 Alkaline Phosphatase 74 units/L (35-129) 10/26/16 05:31 Total Creatine Kinase 421 units/L (30-135) H 10/25/16 06:41 CK-MB (CK-2) 7.6 ng/mL (0.0-4.0) H 10/25/16 06:41 CK-MB (CK-2) Rel Index 1.8 (0-4) 10/25/16 06:41 NT-Pro-B Natriuret Pep 1206 pg/mL (0-900) H 10/25/16 06:41 Total Protein 6.2 g/dL (6.3-8.2) L 10/26/16 05:31 Albumin 3.4 g/dL (3.9-5) L 10/26/16 05:31 Albumin/Globulin Ratio 1.2 % 10/26/16 05:31 - Imaging and Cardiology Chest x-ray: image reviewed (no acute infiltrates noted)
--- NOTE | 2016-10-26 17:37 | Progress Note ---
Assessment and Plan Imp: 1. COPD exacerbation/Asthma exac. 2. Acute bronchitis 3. Acute respiratory failure, hypoxia 4. Pulm HTN, ? due to COPD Rec: 1. Completed a Zpak; no congestion/sputum/infiltrates so would hold off on further ABX 2. Solumedrol -> prednisone taper at d/c 3. Stop Duonebs; use Albuterol nebs prn 4. Resume Advair BID at d/c 5. Check need for home O2 at d/c 6. Re: pulm HTN will need to review PFTs; she refuses PSG 7. D/c planning; f/u Dr. Carvalho in 1 week Plan of care reviewed w/ patient, she understands/agrees Subjective Date of service: 10/26/16 Principal diagnosis: COPD exac. Interval history: No events. C/o that Duonebs is drying her out. SOB overall better. No wheezing. No cough, sputum. Active Medications Acetaminophen (Tylenol) 650 mg PO Q4H PRN PRN Reason: Pain MILD(1-3)/Fever >100.5/TIRADO Albuterol (Proventil) 2.5 mg IH Q4HRT PRN PRN Reason: Shortness Of Breath Alprazolam (Xanax) 0.5 mg PO DAILY PRN PRN Reason: Anxiety Last Admin: 10/25/16 21:28 Dose: 0.5 mg Amlodipine Besylate (Norvasc) 10 mg PO DAILY [facility] Last Admin: 10/26/16 09:33 Dose: 10 mg Bisacodyl (Dulcolax) 10 mg ME QDAY PRN PRN Reason: Constipation unrelieved by MOM Enoxaparin Sodium (Lovenox) 40 mg SUB-Q QDAY@1000 [facility] Lisinopril (Zestril) 20 mg PO QDAY [facility] Last Admin: 10/26/16 09:34 Dose: 20 mg Magnesium Hydroxide (Milk Of Magnesia) 30 ml PO Q4H PRN PRN Reason: Constipation Last Admin: 10/25/16 21:28 Dose: 30 ml Methylprednisolone Sodium Succinate (Solu-Medrol) 20 mg IV Q8H [facility] Ondansetron HCl (Zofran) 4 mg IV Q8H PRN PRN Reason: N/V unrelieved by Reglan Objective Vital Signs - 12hr 10/26/16 10/26/16 10/26/16 07:37 07:47 07:48 Temperature Pulse Rate Pulse Rate [ 96 H 99 H Anterior Right] Pulse Rate [ Apical] Respiratory Rate Respiratory 16 16 Rate [Anterior Right] Blood Pressure Blood Pressure [Right Arm] O2 Sat by Pulse 90 Oximetry 10/26/16 10/26/16 10/26/16 08:00 09:33 09:34 Temperature 97.5 F L Pulse Rate 102 H 102 H Pulse Rate [ Anterior Right] Pulse Rate [ 106 H Apical] Respiratory 20 Rate Respiratory Rate [Anterior Right] Blood Pressure 168/78 168/78 Blood Pressure 168/73 [Right Arm] O2 Sat by Pulse 92 Oximetry 10/26/16 10/26/16 10/26/16 10:00 14:00 15:17 Temperature Pulse Rate 99 H Pulse Rate [ 96 H 91 H Anterior Right] Pulse Rate [ Apical] Respiratory 20 Rate Respiratory 16 17 Rate [Anterior Right] Blood Pressure Blood Pressure [Right Arm] O2 Sat by Pulse Oximetry Constitutional: no acute distress, alert Eyes: non-icteric ENT: oropharynx moist Neck: supple Ascultation: Bilateral: clear Cardiovascular: regular rate and rhythm (no mrg) Gastrointestinal: normoactive bowel sounds, soft, non-tender, non-distended Integumentary: normal Extremities: no cyanosis, no edema, pink and warm Neurologic: normal mental status, non-focal exam, pupils equal and round, CN II- XII normal, motor strength normal and Psychiatric: mood appropriate, affect normal CBC and BMP: 10/26/16 05:31 10/26/16 05:31 ABG, PT/INR, D-dimer: PT/INR, D-dimer PT 12.7 Sec. (12.2-14.9) 10/25/16 06:41 INR 0.96 (0.87-1.13) 10/25/16 06:41 D-Dimer 252.38 ng/mlDDU (0-234) H 10/25/16 06:41 Abnormal lab findings: Abnormal Labs 10/26/16 10/26/16 05:31 05:31 Lymph % (Auto) 7.8 L Lymph # 0.4 L Seg Neutrophils % 88.3 H Glucose 128 H Calcium 8.3 L Total Protein 6.2 L Albumin 3.4 L Chest x-ray: report reviewed, image reviewed CT scan - chest: report reviewed, image reviewed
[2016-10-27] MEDS ORDERED: LOVENOX SUB-Q SCH (10:00)
--- NOTE | 2016-10-27 10:04 | Discharge Summary ---
Providers - Providers Date of Admission: 10/25/16 10:05 Date of discharge: 10/27/16 Attending physician: ASHOK JACOME MD 10/26/16 08:38 Consult to Physician [CONS] Routine Consulting Provider: KJ OROZCO Reason For Exam: exertional dyspnea ?cardiomyopathy Place consult to:: Dr. Orozco Notified:: Charlene BRIONES Phone number called:: Was contact made?: Yes If yes, spoke with:: [facility] service Time called:: 09:24 Primary care physician: [facility] ASSISTANT Hospitalization Reason for admission: shortness of breath Condition: Stable Hospital course: The patient is a 81 year old female with hx of COPD, RA, Asthma was transported to this facility by EMS for a "asthma flare". She states that she took a breathing treatment at home but she did not have relief. Her is being buried today and she is under stress and unfortunately could not attend. she was outside and exposed to a tate of cold air and pollen. EMS gave Solu-Medrol as well as Atrovent and albuterol. The patient arrived in no distress and was noted at triage to have normal work of breathing. She states that she usually runs a pulse oximetry in the low 90s at home. She is not on supplemental oxygen however. She is patient of Dr. Pelayo. She states that she has adult onset asthma after 59 years of age. He stated that she was a former smoker but Dr. Bellamy according to the patient told her that was "not contributory". Patient today significantly improved did have some elevation in blood pressure but this resolved. She reports that she is down due to the of her but denies any suicidal or homicidal ideation. She was seen by both pulmonary and cardiology recommended no further antibiotics. For patient to have a prednisone taper. Duo nebs was discontinued as he made the patient's dry. Discharge diagnosis * Acute exacerbation of COPD with asthma * Acute on chronic respiratory failure with hypoxia * Hypertension * Rheumatoid arthritis * Pulm HTN ? * Elevated BNP * Liver nodules * Left adrenal mass likely cyst Disposition: DISCHARGED TO HOME OR SELFCARE Time spent for discharge: 35 mins Core Measure Documentation - Palliative Care Palliative Care/ Comfort Measures: Not Applicable - Core Measures Any of the following diagnoses?: none - VTE Discharge Requirements Deep Vein Thrombosis/Pulmonary Embolism Present on Admission: No Exam - Physical Exam Narrative exam: VITAL SIGNS: Reviewed. GENERAL: The patient appeared well nourished and normally developed. Vital signs as documented. HEAD: No signs of head trauma. EYES: Pupils are equal. Extraocular motions intact. EARS: Hearing grossly intact. MOUTH: Oropharynx is normal. NECK: No adenopathy, no JVD. CHEST: Chest with mild bibasilar crackles, no wheezes, rales or rhonchi CARDIAC: Regular rate and rhythm. S1 and S2, without murmurs, gallops, or rubs. VASCULAR: No Edema. Peripheral pulses normal and equal in all extremities. ABDOMEN: Soft, without detectable tenderness. No sign of distention. No rebound or guarding, and no masses palpated. Bowel Sounds normal. MUSCULOSKELETAL: Good range of motion of all major joints. Extremities without clubbing, cyanosis or edema. NEUROLOGIC EXAM: Alert and oriented x 3. No focal sensory or strength deficits. Speech normal. Follows commands. PSYCHIATRIC: Mood normal. SKIN: No rash or lesions. - Constitutional Vitals: Temp Pulse Resp BP Pulse Ox 97.8 F 95 H 20 170/88 93 10/27/16 08:00 10/27/16 08:00 10/27/16 08:00 10/27/16 08:00 10/27/16 09:21 Plan Activity: advance as tolerated, fall precautions Diet: low fat Special Instructions: record daily BP diary Follow up with: PRIMARY CAREMD [Primary Care Provider] - 3-5 Days VIRIDIANA SHIN MD [Staff Physician] - 7 Days TENISHA DUQUE MD [Staff Physician] - 7 Days Prescriptions: ALBUTEROL Inhaler [Proair] 2 puff IH QID PRN 30 Days PRN Reason: Shortness Of Breath Prednisone [predniSONE 10 mg (6-Day Pack, 21 Tabs)] 10 mg PO .TAPER #1 tab.ds.pk Other Discharge Orders: Oxygen (Amb) Location: Determined By Patient
--- NOTE | 2016-10-27 10:08 | Progress Note ---
Assessment and Plan Acute respiratory failure COPD exacerbation Hypertension Rheumatoid arthritis Elevated BNP Pulmonary hypertension rec: Patient is of hypertension from COPD stable cardiac Subjective Date of service: 10/27/16 Principal diagnosis: COPD exac. Interval history: Patient had aggravating mild chest discomfort after Atrovent pressures with mildly improved Objective Vital Signs Temp Pulse Pulse Pulse Pulse Resp Resp 10/27/16 09:21 10/27/16 08:00 97.8 F 95 H 20 10/27/16 06:47 98.5 F 87 18 10/27/16 00:00 98.0 F 87 18 10/26/16 22:00 94 H 10/26/16 20:00 98.3 F 104 H 18 10/26/16 16:11 97.8 F 100 H 20 10/26/16 15:17 91 H 17 10/26/16 14:00 96 H 16 BP Pulse Ox 10/27/16 09:21 93 10/27/16 08:00 170/88 90 10/27/16 06:47 162/77 95 10/27/16 00:00 163/75 98 10/26/16 22:00 97 10/26/16 20:00 168/72 98 10/26/16 16:11 172/84 95 10/26/16 15:17 10/26/16 14:00 - Physical Examination General: Appears Well HEENT: Positive: PERRL, Mucus Membranes Moist Neck: Positive: neck supple, trachea midline Cardiac: Positive: Reg Rate and Rhythm Lungs: Positive: Decreased Breath Sounds (left-sided) Neuro: Positive: Grossly Intact Abdomen: Positive: Soft, Active Bowel Sounds. Negative: Tender, Distended Skin: Positive: Clear Incision: Cardiac Cath Site Musculoskeletal: No Pain, Normal Range of Motion Extremities: Present: normal. Absent: edema - Imaging and Cardiology Echo: report reviewed (10/25/2016 normal lv function mild tr rvsp 56 mm hg and small pericardial effusion) - Telemetry EKG Rhythm: Sinus Rhythm
[2016-10-27] MEDS: ZESTRIL PO SCH (11:13)
[2016-10-27] MEDS: NORVASC PO SCH (11:13)
[2016-10-27] MEDS ORDERED: APRESOLINE IV ONE (11:14)
--- NOTE | 2016-10-27 17:16 | Progress Note ---
Assessment and Plan Imp: 1. COPD exacerbation/Asthma exac. 2. Acute bronchitis 3. Acute respiratory failure, hypoxia 4. Pulm HTN, ? due to COPD Rec: 1. Completed 3 days of Zpak; going home today; she is to take dose #4 tonight and dose #5 tomorrow; she is see Dr. Carvalho in the office on 10/28 or 10/29 to determine if more ABX beyond the Zpak are needed 2. Prednisone taper at d/c 3. Stop Duonebs; use Albuterol nebs prn 4. Resume Advair BID at d/c 5. Home O2 to be arranged 6. Pulm HTN may be due to COPD; hopefully home O2 will help; she refuses PSG 7. D/c planning; f/u Dr. Carvalho in 1-2 days Plan of care reviewed w/ patient/daughter, they understand/agree Subjective Date of service: 10/27/16 Principal diagnosis: COPD exac. Interval history: No events. SOB overall better. No wheezing. + Cough now w/ green sputum. Active Medications Acetaminophen (Tylenol) 650 mg PO Q4H PRN PRN Reason: Pain MILD(1-3)/Fever >100.5/TIRADO Albuterol (Proventil) 2.5 mg IH Q4HRT PRN PRN Reason: Shortness Of Breath Alprazolam (Xanax) 0.5 mg PO DAILY PRN PRN Reason: Anxiety Last Admin: 10/25/16 21:28 Dose: 0.5 mg Amlodipine Besylate (Norvasc) 10 mg PO DAILY [facility] Last Admin: 10/27/16 11:13 Dose: 10 mg Bisacodyl (Dulcolax) 10 mg [place] QDAY PRN PRN Reason: Constipation unrelieved by MOM Enoxaparin Sodium (Lovenox) 40 mg SUB-Q QDAY@1000 [facility] Last Admin: 10/27/16 11:13 Dose: 40 mg Lisinopril (Zestril) 20 mg PO QDAY [facility] Last Admin: 10/27/16 11:13 Dose: 20 mg Magnesium Hydroxide (Milk Of Magnesia) 30 ml PO Q4H PRN PRN Reason: Constipation Last Admin: 10/25/16 21:28 Dose: 30 ml Methylprednisolone Sodium Succinate (Solu-Medrol) 20 mg IV Q8H [facility] Last Admin: 10/27/16 08:59 Dose: 20 mg Ondansetron HCl (Zofran) 4 mg IV Q8H PRN PRN Reason: N/V unrelieved by Purvi Objective Vital Signs - 12hr 10/27/16 10/27/16 10/27/16 06:47 08:00 09:21 Temperature 98.5 F 97.8 F Pulse Rate [ 95 H Apical] Pulse Rate [ 87 Right Radial] Respiratory 18 20 Rate Blood Pressure Blood Pressure 162/77 170/88 [Right Arm] O2 Sat by Pulse 95 90 93 Oximetry 10/27/16 10/27/16 10/27/16 11:13 11:19 12:00 Temperature 98.4 F Pulse Rate [ 93 H Apical] Pulse Rate [ Right Radial] Respiratory 18 Rate Blood Pressure 193/88 193/88 Blood Pressure 193/80 [Right Arm] O2 Sat by Pulse 92 Oximetry 10/27/16 13:17 Temperature Pulse Rate [ 98 H Apical] Pulse Rate [ Right Radial] Respiratory Rate Blood Pressure Blood Pressure 167/75 [Right Arm] O2 Sat by Pulse Oximetry Constitutional: no acute distress, alert Eyes: non-icteric ENT: oropharynx moist Neck: supple Effort: normal Ascultation: Bilateral: rhonchi (few bilaterally) Cardiovascular: regular rate and rhythm (no mrg) Gastrointestinal: normoactive bowel sounds, soft, non-tender, non-distended Integumentary: normal Extremities: no cyanosis, no edema, pink and warm Neurologic: normal mental status, non-focal exam, pupils equal and round, CN II- XII normal, motor strength normal and Psychiatric: mood appropriate, affect normal CBC and BMP: 10/26/16 05:31 10/26/16 05:31 ABG, PT/INR, D-dimer: PT/INR, D-dimer PT 12.7 Sec. (12.2-14.9) 10/25/16 06:41 INR 0.96 (0.87-1.13) 10/25/16 06:41 D-Dimer 252.38 ng/mlDDU (0-234) H 10/25/16 06:41 Abnormal lab findings: Abnormal Labs 10/26/16 10/26/16 05:31 05:31 Lymph % (Auto) 7.8 L Lymph # 0.4 L Seg Neutrophils % 88.3 H Glucose 128 H Calcium 8.3 L Total Protein 6.2 L Albumin 3.4 L Chest x-ray: report reviewed, image reviewed CT scan - chest: report reviewed, image reviewed
[2016-10-27 18:39] VITALS: BP 170/77
== END 2016-10-27 19:13 | disposition home health service (06) | DRG 189 ==
LOC: ED 04:48 → 4A 10:05
PROVIDERS: ADMIT Internal Medicine; ATTEND Internal Medicine
DX: J96.01 Acute respiratory failure with hypoxia (principal); J44.1 Chronic obstructive pulmonary disease with (acute) exacerbation; I42.9 Cardiomyopathy, unspecified; J45.901 Unspecified asthma with (acute) exacerbation; J44.0 Chronic obstructive pulmonary disease with (acute) lower respiratory infection; E87.6 Hypokalemia; I10 Essential (primary) hypertension; M06.9 Rheumatoid arthritis, unspecified; I27.2 Other secondary pulmonary hypertension; J20.9 Acute bronchitis, unspecified; Z90.49 Acquired absence of other specified parts of digestive tract; Z88.8 Allergy status to other drugs, medicaments and biological substances; Z88.2 Allergy status to sulfonamides; Z88.6 Allergy status to analgesic agent; Z82.49 Family history of ischemic heart disease and other diseases of the circulatory system
CPT/HCPCS: 36415; 71010; 71275; 80048; 80053; 80074; 82140; 82550; 82553; 83880; 85025; 85379; 85610; 85730; 93005; 93010; 93306; 94640; 94760; J0360; J1650; J2920; Q9967

== ENCOUNTER 2017-10-15 11:06 | Outpatient (CLI) | payer MEDICARE ==
--- NOTE | 2017-10-15 12:42 | Mammography Report ---
Bilateral mammogram: Compared to 07/05/16. CAD study utilized. Findings: Predominance adipose tissue bilaterally. No mass or microcalcification. Benign exam. Impression: Benign findings. Annual followup recommended. BI-RADS CATEGORY: 2 = Benign ACR BI-RADS MAMMOGRAPHIC CODES: 0 = Needs additional imaging evaluation; 1 = Negative; 2 = Benign; 3 = Probably benign; 4 = Suspicious; 5 = Malignant; 6 = Known biopsy-proven malignancy COMMENT: 1. Dense breast tissue, i.e., adenosis, fibrocystic changes, etc., may obscure an underlying neoplasm. 2. Approximately 10% of cancers are not detected with mammography. 3. A negative mammography report should not delay biopsy if a clinically suspicious mass is present. COMMENT: Patient follow-up letters are generated in [employer].
== END 2017-10-15 11:07 | disposition home or self-care (01) ==
LOC: MAMMO 11:06
PROVIDERS: ATTEND Specialist
DX: Z12.31 Encounter for screening mammogram for malignant neoplasm of breast (principal)
CPT/HCPCS: 77067

== ENCOUNTER 2021-01-04 09:22 | Outpatient (CLI) | payer MEDICARE ==
--- NOTE | 2021-01-04 12:41 | Mammography Report ---
DIGITAL SCREENING MAMMOGRAM WITH CAD, 01/04/2021 CLINICAL INFORMATION / INDICATION: Routine screening mammography. SCRN MAMMO TECHNIQUE: Digital bilateral 2D mammography was obtained in the craniocaudal and mediolateral obliqu e projections. This examination was interpreted with the benefit of Computer-Aided Detection analysis . COMPARISON: 04/17/2015 through 10/15/2017. FINDINGS: Breast Density: The breasts are almost entirely fatty. No dominant mass, suspicious calcifications, or architectural distortion in either breast. IMPRESSION: No mammographic evidence of malignancy. Follow up recommendation: Routine yearly BI-RADS Category 1: Negative. A "normal" or negative report should not discourage follow up or biopsy of a clinically significant f inding. A written summary of these findings will be mailed to the patient. The patient will be entered into a mammography reporting system which will generate a reminder letter for the patient's next appointmen t at the appropriate interval. The [employer] recommends yearly mammograms starting at age 40 and continuing as l mary as a woman is in good health. Breast MRI is recommended for women with an approximate 20-25% or greater lifetime risk of breast cancer, including women with a strong family history of breast or ova dmitri cancer or who have been treated for Hodgkin's disease. Signer Name: Ilir Sheehan MD Signed: 01/04/2021 12:37 PM Workstation Name: [id number]
== END 2021-01-04 09:23 | disposition home or self-care (01) ==
LOC: MAMMO 09:22
PROVIDERS: ATTEND Specialist
DX: Z12.31 Encounter for screening mammogram for malignant neoplasm of breast (principal)
CPT/HCPCS: 77067